=== PATIENT | female | born 1945 | race Two or more races ===

== ENCOUNTER → 2020-08-02 | Outpatient (CLI) | payer MEDICARE ==
--- NOTE | 2020-08-02 11:08 | RAD ---
EXAM: Bilateral digital screening mammogram with tomosynthesis. HISTORY: 75-year-old female presents for screening mammography. TECHNIQUE: Full-field digital craniocaudal and mediolateral oblique 2D and 3D tomosynthesis images of both breasts are obtained for evaluation. Computer aided detection was applied. COMPARISON: 07/09/2018 BREAST PARENCHYMAL DENSITY: Level D - Extremely dense. FINDINGS: There is no new suspicious mass, microcalcification or region of architectural distortion. IMPRESSION: BI-RADS Category 2: Benign finding(s). RECOMMENDATION: Annual mammography is recommended. If your mammogram demonstrates that you have dense breast tissue, which could hide abnormalities, and if you have other risk factors for breast cancer that have been identified, you might benefit from s upplemental screening tests that may be suggested by your ordering physician. Dense breast tissue, i n and of itself, is a relatively common condition. This information is not provided to cause undue c oncern, but rather to raise your awareness and to promote discussion with your physician regarding th e presence of other risk factors, in addition to dense breast tissue. A report of your mammography re sults will be sent to you and your physician. You should contact your physician if you have any ques tions or concerns regarding this report. Mammography is a sensitive method for finding small breast cancers, but it does not detect them all a nd is not a substitute for careful clinical examination. A negative mammogram does not negate a clin ically suspicious finding and should not result in delay in biopsying a clinically suspicious abnorma lity. PQRS compliance statement - Patient information was entered into a reminder system with a target due date for the next mammogram. "Our facility is accredited by the [employer] Mammography [employer]." Electronically signed by: Mera Coleman MD (08/02/2020 11:05 AM) [id number]
== END ==
LOC: MERGE 11:14 → MAMMO 11:14
PROVIDERS: ATTEND Family Medicine
DX: Z12.31 Encounter for screening mammogram for malignant neoplasm of breast (principal)
CPT/HCPCS: 77063; 77067

== ENCOUNTER → 2020-10-05 | Outpatient (CLI) | payer MEDICARE ==
--- NOTE | 2020-10-05 15:43 | RAD ---
EXAM: 3 Views Right Shoulder DATE: 10/05/2020 12:51 PM INDICATION: Reason: RIGHT SHOULDER PAIN. / Spl. Instructions: / History: COMPARISON: No Prior FINDINGS: There is no evidence for acute fracture or dislocation. AC joint is congruent. Mild lateral downslopi ng of the distal acromion. Small glenoid osteophytes. Decreased bone mineral density. Humeral head is not high riding. IMPRESSION: 1. No acute fracture or dislocation. 2. Mild left glenohumeral joint osteoarthritis. 3. Decreased bone mineral density. Electronically signed by: Catalino Sy MD (10/05/2020 3:40 PM) [id number]
--- NOTE | 2020-10-05 16:27 | RAD ---
XR LUMBAR SPINE 2-3V History: Reason: low back pain / Spl. Instructions: / History: Technique: 3 views lumbar spine. Comparison: August 05, 2018 Findings: Transitional lumbosacral anatomy with sacralization of L5. Grade 1 anterolisthesis L4 on L5 approxima tely 6 mm. Normal vertebral body height. No acute fracture. Degenerative disc changes most prominent moderate L4-L5. Advanced facet arthropathy most prominent L4-5. Chronic T11 compression fracture. Unchanged positioning of the coccyx in relation to the sacrum. Impression: 1. Transitional lumbosacral anatomy. 2. Grade 1 anterolisthesis L4 on L5, unchanged. 3. Multilevel lumbar spondylosis most prominent L4-5, similar compared to prior. 4. Chronic T11 compression fracture. Electronically signed by: Eleno Fuentes DO (10/05/2020 4:25 PM) [id number]
== END ==
LOC: RAD 12:17
PROVIDERS: ATTEND Family Medicine
DX: M19.012 Primary osteoarthritis, left shoulder (principal); M25.711 Osteophyte, right shoulder; M48.54XA Collapsed vertebra, not elsewhere classified, thoracic region, initial encounter for fracture; M47.26 Other spondylosis with radiculopathy, lumbar region; M43.16 Spondylolisthesis, lumbar region; M85.88 Other specified disorders of bone density and structure, other site
CPT/HCPCS: 72100; 73030

== ENCOUNTER → 2020-10-21 | Outpatient (CLI) | payer MEDICARE ==
--- NOTE | 2020-10-21 13:15 | RAD ---
Abdominal ultrasound, and transabdominal and endovaginal pelvic ultrasound for history of left lower quadrant abdominal pain. TECHNIQUE: Real-time grayscale and color Doppler evaluation of the abdominal organs is performed. Tra nsabdominal and endovaginal pelvic ultrasound was also performed. Findings in the abdomen: The visualized aorta is nonaneurysmal. IVC is patent. The liver is normal in size, contour, and echogenicity. There is a 2 cm cyst anteriorly within the right lobe the liver, wi th increased through transmission anechoic center, with a single small nonshadowing echogenic mural c omponent. Gallbladder is unremarkable. Common bile duct is not visualized, and may be obscured by ove rlying bowel gas. There is hepatopedal flow is a patent portal vein. The right kidney measures 10.8 x 4.5 x 5.3 cm. There is ovoid masslike fullness in indistinctness of the margins of the anterior infe rior aspect of the right kidney, which may be due to technical limitations of the exam, however an in filtrating renal mass cannot be excluded. The left kidney measures 12.8 x 4.0 x 6.6 cm and is notable for 2 simple renal cysts for which no additional follow-up is required. There is no hydronephrosis i nvolving either kidney. There is no perinephric fluid involving either kidney. Visualized portions th e pancreas are normal. Visualized portions of the spleen are normal. There is no ascites. Findings in the pelvis: The bladder is incompletely distended, constituting a limited acoustic window . On transvaginal imaging, the uterus is seen and measures 7.4 x 3.7 x 4.3 cm. There is a 3.3 x 2.6 x 2.4 cm heterogeneous hypoechoic densely shadowing mass arising from the uterine fundus, obscuring th e endometrium. This may represent calcified uterine fibroid, but is difficult characterized sonograph ically due to shadowing. No adnexal masses or free fluid identified. The ovaries are not seen. There is a small nabothian cyst. IMPRESSION: 1. Vague masslike fullness of the right kidney, which may be spurious, but should be more definitivel y evaluated with contrast-enhanced CT scan or MRI. 2. Hepatic cysts with a small nonshadowing hyperechoic mural component of questionable clinical signi ficance. 3-6 month follow-up ultrasound study or further evaluation with contrast-enhanced CT scan or MRI should be considered. 3. 3.3 cm densely shadowing hypoechoic mass in the uterine fundus, obscuring evaluation of the endome trium. This may represent a calcified uterine fibroid, however other etiologies cannot be excluded. C onsider 3-6 month follow-up ultrasound to confirm stability, versus more definitive evaluation with p elvic MRI. Electronically signed by: Reji Bailon MD (10/21/2020 1:13 PM) [id number]
== END ==
LOC: US 10:19
PROVIDERS: ATTEND Family Medicine
DX: N28.1 Cyst of kidney, acquired (principal); K76.89 Other specified diseases of liver; N88.8 Other specified noninflammatory disorders of cervix uteri; R10.32 Left lower quadrant pain
CPT/HCPCS: 76700; 76830; 76856

== ENCOUNTER → 2020-12-02 | Outpatient (CLI) | payer MEDICARE ==
--- NOTE | 2020-12-02 13:54 | RAD ---
EXAMINATION: CT abdomen without IV contrast. INDICATION:75 years, Female, right renal mass seen on ultrasound. Further evaluation. TECHNIQUE: Axial CT images of the abdomen was obtained. Coronal and sagittal reformatted performed. COMPARISON: Ultrasound dated 10/21/2020. Exposure: One or more of the following individualized dose reduction techniques were utilized for thi s examination: 1. Automated exposure control 2. Adjustment of the mA and/or kV according to patient size 3. Use of iterative reconstruction technique. FINDINGS: LOWER CHEST: Minimal centrilobular pulmonary emphysema. ABDOMEN: Within the limitation of noncontrast exam, No hydronephrosis or nephrolithiasis in either kidney. lobulation of the renal cortices. No dis crete mass in the interpolar/lower pole right kidney corresponds to previously seen lesion. Redemonst rated subcentimeter simple cyst in the lower pole left kidney. Mildly complex 1.5 cm cystic lesion wi th eccentric calcification in the upper pole left kidney. Normal size and morphology of the liver. Redemonstrated benign-appearing cyst in subcapsular hepatic segment 3 measures 1.3 cm. Subcentimeter hypodensity in the hepatic segment 2, too small to character ize, favors benign etiology such as a cyst. Gallbladder, biliary ducts, spleen and pancreas are unrem arkable. No adrenal nodule. No bowel dilation. Colonic diverticulosis without diverticulitis. Normal appendix. Normal caliber abd ominal aorta. No ascites. No pneumoperitoneum. No lymphadenopathy in the abdomen by size criteria. MUSCULOSKELETAL STRUCTURES: Chronic appearing T11 compression fracture. Multilevel degenerative changes in the spine. IMPRESSION: Within the limitation of noncontrast exam, 1. No discrete mass in the interpolar/lower pole right kidney corresponds to previously seen lesion. Recommend follow-up with renal ultrasound in 3-6 months. 2. Mildly complex 1.5 cm cystic lesion with eccentric calcification in the upper pole left kidney, l ikely Bosniak type II cyst. 3. Colonic diverticulosis without diverticulitis. 4. Other chronic/incidental findings, as described above. Electronically signed by: Alma Burris MD (12/02/2020 1:51 PM) [facility]
== END ==
LOC: CT 10:12
PROVIDERS: ATTEND Family Medicine
DX: N28.1 Cyst of kidney, acquired (principal); N28.89 Other specified disorders of kidney and ureter; J43.2 Centrilobular emphysema; K57.30 Diverticulosis of large intestine without perforation or abscess without bleeding
CPT/HCPCS: 74150